=== PATIENT | male | born 1975 | race Two or more races ===

== ENCOUNTER 2025-03-14 00:38 | Day surgery (SDC) | payer OTHER, SELFPAY ==
[2025-03-09 13:44] VITALS: BMI 24.3
--- NOTE | 2025-03-09 13:56 | PC.NURSE ---
Report to hospital entrance 7 right of the green pavilion by the Dr's parking lot located off [facility], at time _0600_ on date _[id number]_. Planned Procedure Time: _0730_.? Time changes happen often and if your time is changed the preop area will call you the afternoon before. - You and your visitor will be asked to self-screen and do not enter if you have any COVID symptoms. Please call surgeon if you need to reschedule. - A mask is optional within the hospital at this time. Patients may have clear liquids (water, carbonated beverages, clear teas, apple juice) until 3 hours prior to surgery with a maximum of 20 ounces. - No food from midnight until time of surgery and no smoking, or chewing tobacco (or any form of nicotine). No chewing gum, candy or mints. Take only the following medications with a SIP of water on the morning of surgery: __Fluticasone/Salmeterol inhaler and if needed Albuterol.___ DO NOT STOP ANY OF YOUR OTHER PRESCRIPTION MEDICATIONS PRIOR TO SURGERY EXCEPT THE FOLLOWING Hold all vitamins and supplements for 3 days per anesthesiologist. Medications to discontinue per physician ___Ibuprofen if indicated by Dr Rivera's office.___ Date to take last dose Please no make-up, nail chinese, hairspray, perfume, deodorant, or body powder the day of surgery.? No jewelry (including any body piercings) or valuables the day of surgery, leave them at home.? Please take a shower or bath the night before, or the morning of, surgery with an antibacterial soap.? Wear comfortable, loose fitting clothing. - Jewelry must be removed prior to entering the operating room.? Rings and piercings that are not removed may be cut off. - The hospital will not accept responsibility for valuables.? - Please leave all valuables, including medications, at home the day of surgery. If you are going home after surgery, a licensed double bottom driver must drive you home.? - NO public transportation without another adult if you receive anesthesia. - We recommend that an adult stay with you for 24 hours following discharge. - We also recommend that you do not drive, make important decision, drink alcoholic beverages, or take any drugs that were not prescribed by your health care provider for at least 24 hours after your discharge time. Follow any additional instructions given to you from your surgeon. Telephone instructions given to __Savana Dia___and asked if any additional questions and then verbalized understanding. Patient advised to call surgeon office or pre surgery nurse liaison [phone] if any additional questions.
[2025-03-14] VITALS (7 sets, daily range): BP systolic 106–124; BP diastolic 50–78; PULSE 61–87; RESP 12–20; TEMP 36.2–36.9; O2SAT 95–98
[2025-03-14] MEDS: LACTATED RINGERS 1,000 ML 30 ML IV CONT ×2 (06:05→08:33)
[2025-03-14] MEDS: KETOROLAC 15 MG/ML VIAL (*BKC) IV PUSH (06:30)
[2025-03-14] MEDS: ACETAMINOPHEN 500 MG TABLET 1000 MG PO (06:30)
--- NOTE | 2025-03-14 06:42 | P.PNAN_ITS ---
Anes - Initial Pre Proc Eval Procedure: Operation Date: 03/14/25 07:30 Proposed Procedures p Open Umbilical Hernia Repair, Possible Mesh - Micah Rivera MD Date/Time: 03/14/25 06:42 Surgeon: Micah Rivera MD Pre Op Diagnosis: reducible umbilical hernia Patient Data Age: 49 Gender: M Height: 1.65 m Weight: 69.3 kg Last Vital Signs Temp 36.2 C L 03/14/25 06:07 Pulse 61 03/14/25 06:07 Resp 16 03/14/25 06:07 BP 124/78 03/14/25 06:07 Pulse Ox 98 03/14/25 06:07 O2 Del Method Room Air 03/14/25 06:07 Allergies Allergy/AdvReac Type Severity Reaction Status Date / Time No Known Allergies Allergy Verified 03/14/25 06:17 Home Medications ?Medication ?Instructions ?Recorded ?Confirmed ?Type albuterol sulfate 90 mcg/actuation 2 inh inhalation Q6H PRN shortness 12/15/24 03/09/25 History breath activated powder inhaler of breath or wheezing fluticasone 250 mcg-salmeterol 50 1 inh inhalation BID 12/15/24 03/09/25 History mcg/dose blistr powdr for inhalation (Wixela Inhub) ibuprofen 600 mg tablet 600 mg PO BID PRN pain 12/15/24 03/09/25 History Laboratory Tests 03/14/25 06:31 PT Pending INR Pending APTT Pending Sodium Pending Potassium Pending Chloride Pending Carbon Dioxide Pending Anion Gap Pending BUN Pending Creatinine Pending Estim Creat Clear Calc Pending Estimated GFR Pending Glucose Pending Calcium Pending Patient hx anesthesia problems: none Family hx anesthesia problems: none Results Review: All pre-operative results and documents have been reviewed as part of the pre- operative evaluation. [facility] Past Medical History Medical History (Updated 03/14/25 @ 06:42 by Tres Franz MD) Umbilical hernia without obstruction and without gangrene Asthma Social History Social History Smoking status: Unknown if ever smoked Alcohol intake: never Substance use: never Anes - Eval Final PreProcedure Day of Procedure 03/14/25 06:42 Patient weight: normal Heart: regular rate and rhythm Lungs: clear to auscultation Airway: Mallampati scale class II Neurological: alert and oriented Last oral intake: >/= 8 hours ASA classification: II Emergent: no Anesthetic plan: proceed Anesthesia type and monitoring: general ETT and standard monitoring Results Review: All pre-operative results and documents have been reviewed as part of the pre-operative evaluation. Informed Consent: The patient's anesthetic plan and its attendant risks and benefits were discussed with the patient/family/POA. Questions were solicited and answers provided to the satisfaction of the patient/family/POA.
[2025-03-14 06:46] LABS: Anion Gap 9 mmol/L (4-12); Blood Urea Nitrogen 21 mg/dL (9-20); Carbon Dioxide 25 mmol/L (22-30); Chloride 107 mmol/L (98-107); Estimated CRCL calculation 88 ml/min; Estimated Glomerular Filt Rate > 60; Glucose 99 mg/dL (65-110); Potassium 4.1 mmol/L (3.4-5.0); Sodium 141 mmol/L (137-145)
[2025-03-14 06:54] LABS: INR 1.1; Partial Thromboplastin Time 28.1 Seconds (22.3-36.8); Prothrombin Time 13.8 Seconds (11.1-14.7)
--- NOTE | 2025-03-14 07:15 | PM.IMHP ---
H&P: HPI History of Present Illness Date/Time: 03/14/25 07:15 Chief Complaint: Umbilical hernia Narrative: Mr. Shukla presents to the office at the request of Dr. Driver for evaluation. The patient report a almost 2 year history of umbilical bulging with an increase in size and associated tenderness. No overlying skin changes. He denies nausea, vomiting, change in bowel habits, abdominal distension, or other obstructive symptoms. No prior history of abdominal surgeries. Review of Systems Review of Systems: The remainder of the review of systems to include constitutional, HEENT, cardiovascular, respiratory, GI, , integumentary, musculoskeletal, endocrine, immunologic, hematologic, psychiatric, and neurologic are all negative except for which is mentioned above in the HPI. [facility] Past Medical History Medical History Umbilical hernia without obstruction and without gangrene Asthma Social History Social History Smoking status: Unknown if ever smoked Alcohol intake: never Substance use: never Meds Home Medications and Allergies Home Medications ?Medication ?Instructions ?Recorded ?Confirmed ?Type albuterol sulfate 90 mcg/actuation 2 inh inhalation Q6H PRN shortness 12/15/24 03/09/25 History breath activated powder inhaler of breath or wheezing fluticasone 250 mcg-salmeterol 50 1 inh inhalation BID 12/15/24 03/09/25 History mcg/dose blistr powdr for inhalation (Wixela Inhub) ibuprofen 600 mg tablet 600 mg PO BID PRN pain 12/15/24 03/09/25 History Allergies Allergy/AdvReac Type Severity Reaction Status Date / Time No Known Allergies Allergy Verified 03/14/25 06:17 Vital Signs Vital Signs - 24 hr 03/14/25 06:07 Temperature 36.2 C L Pulse Rate 61 Respiratory Rate 16 Blood Pressure 124/78 Pulse Oximetry 98 Oxygen Delivery Room Air Exam Const: General: comfortable and no acute distress HENMT: Ears: TM's normal bilaterally Face/Nose/Sinus: Normal nares present Mouth: Yes moist mucous membranes Eyes: General: appearance normal, both eyes and all related structures Sclera: sclerae normal Pupils: Equal, round and reactive pupils present EOM: EOMs intact bilaterally Neck: Neck: supple and no JVD Resp: Effort & Inspection: normal respiratory effort Auscultation: clear to auscultation bilaterally Cardio: Rate: regular rate Rhythm: regular rhythm GI: Other: Soft, nondistended. Reducible umbilical hernia, defect measuring 1 to 2cm. No other ventral hernias and no masses. Minor TTP. Skin: General skin exam: normal color and no rashes or lesions noted Neuro: General: gait normal Speech: normal speech Motor exam (neuro): 5/5 motor strength present throughout Sensory Exam: normal sensation Extrem: General: normal to inspection Psych: Mental Status: mental status grossly normal Affect: normal affect H&P: Results Labs Labs: [facility] 03/14/25 06:31 Sodium 141 Potassium 4.1 Chloride 107 Carbon Dioxide 25 BUN 21 H Creatinine 0.77 Glucose 99 Calcium 9.0 Assessment and Plan Assessment and plan (1) Umbilical hernia without mention of obstruction or gangrene: Code(s): K42.9 - Umbilical hernia without obstruction or gangrene Status: Acute Assessment and Plan: Prior to the patients visit, I reviewed the office note of Dr. Driver. Patient has a increasingly symptomatic reducible umbilical hernia. Recommend proceeding with open umbilical hernia repair to be performed in the OR under general anesthesia as an outpatient. The surgery was explained in detail including description, risks, benefits, the possible use of mesh, post-operative restrictions, recovery, and expected outcome. After discussion and answering all the patients questions, he agrees to proceed as discussed.
--- NOTE | 2025-03-14 07:24 | WPDHPUPDATE1 ---
History and Physical Update Update Date/Time: 03/14/25 07:24 History and Physical has been reviewed, including an updated exam of the patient. There are NO changes in the patient's condition. Risks, benefits, and alternatives have been discussed and questions answered. Patient agrees to proceed with procedure.
[2025-03-14] MEDS: ceFAZolin 2 GM/D5W 50 ML 2 GM/50 ML BAG IVPB (07:29)
[2025-03-14] MEDS: BUPivacaine HCL 0.5% 10 ML AMP 20 ML INFILTRATE (07:56)
[2025-03-14] MEDS: LIDO 1%/EPINEPHRINE 1:100,000 50 ML VIAL 20 ML INFILTRATE (07:57)
--- NOTE | 2025-03-14 08:33 | W.PM.PROC2 ---
Procedure Note - Detailed Date of Procedure 03/14/25 Pre-op Diagnosis Reducible umbilical hernia Post-op Diagnosis Other (Incarcerated umbilical hernia) Procedure Performed Open incarcerated umbilical hernia repair without mesh Surgeon Micah Rivera MD Senior Technical Manager [facility] [employer] Anesthesia General Indications Patient is a 49-year-old gentleman who is currently incarcerated at 1 of the local group home facilities. He presented just superior to his umbilicus which has been enlarging and painful. On examination he appeared to have an umbilical hernia. He presents now for elective repair the umbilical hernia without mesh. Findings The patient actually had some incarcerated preperitoneal fat within the hernia. The fascial defect was just above the umbilical stalk and measured approximately 1cm in diameter. Description of Procedure After informed consent was obtained patient brought to the operating room was placed supine position and general LMA anesthesia was administered. The abdomen was then prepped and draped usual sterile fashion. Time-out was then performed correctly identifying the patient as well as procedure to be performed. He was given perioperative IV antibiotics. I then made a curved incision along the upper portion of the umbilicus with a scalpel then dissected down through the dermis of the skin with scalpel. I then dissected down through the subcutaneous tissues to reach the hernia contents. The contents appeared to be preperitoneal fat and it was incarcerated above the level of the fascia. I then resected the preperitoneal fat electrocautery. The remaining fatty tissue was then reduced back through the defect. The defect measured approximately 1cm in diameter. I then used multiple interrupted 0 Ethibond sutures to close the defect. 1cm bites of healthy fascia were then obtained with each of the 5 separate 0 Ethibond sutures that I placed. The defect closed nicely without any tension. I then irrigated out the incision sterile saline solution. Hemostasis was good. 1% lidocaine mixed with 0.5% Marcaine with some epinephrine was injected around the repair and the subcutaneous tissues for local anesthetic effect. The incision was then closed utilizing interrupted 3-0 Vicryl sutures in the subcutaneous tissues. The deep dermal layer of interrupted 3-0 Vicryl sutures were placed in the skin edges were approximated utilizing a running subcuticular 4 Monocryl suture. Incision was then cleaned the skin glue was applied. The patient tolerated the procedure well no complications. All sponges, needles, and instrument counts were correct at the end procedure. EBL was __ 5 _cc. The patient was awakened and taken to recovery in stable and satisfactory condition. Implants None Estimated Blood Loss 5 Drains No Packing No Pathology None sent Complications No immediate complications Condition Stable Disposition PACU [facility] Billing Surgery - Charge Forward: Surgery Billing
== END 2025-03-14 10:09 | disposition home or self-care (01) ==
PROVIDERS: Anesthesiology; Visit Provider Surgery
PROC: (CPT 49592; principal; 2025-03-14 07:30)
DX: K42.0 Umbilical hernia with obstruction, without gangrene (principal)
CPT/HCPCS: 49592; 36415; 80048; 85610; 85730; A9270; J0690; J1100; J1885; J2004; J2250; J2405; J2704; J3010; J7120